=== PATIENT | male | born 1995 | race African-American/Black ===

== ENCOUNTER 2020-01-23 07:45 | Emergency (ER) | payer OTHER ==
[~2020-01-23] VITALS: Ht 182.9 cm; Wt 91.6 kg
--- NOTE | 2020-01-23 08:19 | NUR ---
Patient awake alert left wrist pain stated fall non distress ,aware for xray .
--- NOTE | 2020-01-23 10:59 | NUR ---
Patient discharged to home in stable condition. Written and verbal after care instructions given. Patient verbalizes understanding of instruction.
--- NOTE | 2020-01-23 11:00 | NUR ---
Patient discharged to home in stable condition. Written and verbal after care instructions given. Patient verbalizes understanding of instruction.
[2020-01-23 11:01] VITALS: BP 145/67
[2020-01-23] MEDS ORDERED: TRAMADOL HCL 50 MG TABLET ONE (11:02)
[2020-01-23] MEDS ORDERED: TRAMADOL HCL 50 MG TABLET PO ONE (11:30)
== END 2020-01-23 11:02 | disposition home or self-care (01) ==
LOC: ER 07:50
DX: S52.572A Other intraarticular fracture of lower end of left radius, initial encounter for closed fracture (principal); W18.39XA Other fall on same level, initial encounter; Y93.89 Activity, other specified; Y92.89 Other specified places as the place of occurrence of the external cause; Y99.8 Other external cause status
CPT/HCPCS: 73090-TC; 73110